=== PATIENT | female | born 1995 | race Caucasian/White ===

== ENCOUNTER 2024-11-30 22:43 | Emergency (ER) | payer BC, SELFPAY ==
[2024-11-30 23:03] VITALS: BP 136/77; PULSE 74; RESP 17; TEMP 36.9; O2SAT 98
== END 2024-11-30 23:43 | disposition left against medical advice (07) ==
PROVIDERS: Emergency Provider Student in an Organized Health Care Education/Training Program
CPT/HCPCS: 99281